=== PATIENT | female | born 1960 | race African-American/Black ===

== ENCOUNTER 2020-06-02 21:27 | Emergency (ER) | payer MEDICARE ==
[~2020-06-02] VITALS: Ht 162.6 cm; Wt 118.2 kg
[2020-06-02 21:29] VITALS: BP 131/82; Ht 162.6 cm; Wt 118.2 kg
[2020-06-02] MEDS ORDERED: KEFLEX500 MG PO (22:29)
[2020-06-03] MEDS ORDERED: NEURONTIN 300300 MG PO (12:33)
[2020-06-03] MEDS ORDERED: PRAVACHOL40 MG PO (12:33)
[2020-06-03] MEDS ORDERED: K-DUR20 MEQ PO (12:34)
[2020-06-03] MEDS ORDERED: PEPCID AC20 MG PO (12:34)
[2020-06-03] MEDS ORDERED: BETAPACE 120 M120 MG PO (12:35)
[2020-06-03] MEDS ORDERED: PLAVIX75 MG PO (12:35)
[2020-06-03] MEDS ORDERED: LEXAPRO20 MG PO (12:35)
[2020-06-03] MEDS ORDERED: BUMEX2 MG PO (12:36)
[2020-06-03] MEDS ORDERED: ELIQUIS5 MG PO (12:36)
[2020-06-04 02:47] VITALS: Ht 162.6 cm; Wt 118.2 kg
[2020-06-04] MEDS ORDERED: HYDROCODON-ACE1 EAC7 PO (16:52)
== END 2020-06-03 00:55 | disposition home or self-care (01) ==
LOC: D.ER 21:27 → EDBD 21:27 → D.ER 06-03 00:55
DX: S91.114A Laceration without foreign body of right lesser toe(s) without damage to nail, initial encounter (principal); X58.XXXA Exposure to other specified factors, initial encounter

== ENCOUNTER 2020-06-03 12:16 | Inpatient (IN) | payer MEDICARE, MEDICAID ==
[~2020-06-03] VITALS: Ht 162.6 cm; Wt 101.8 kg
[~2020-06-03 12:16] MED LIST: KEFLEX500 MG PO
[2020-06-03] MEDS ORDERED: NEURONTIN 300300 MG PO (12:33)
[2020-06-03] MEDS ORDERED: PRAVACHOL40 MG PO (12:33)
[2020-06-03] MEDS ORDERED: K-DUR20 MEQ PO (12:34)
[2020-06-03] MEDS ORDERED: PEPCID AC20 MG PO (12:34)
[2020-06-03] MEDS ORDERED: BETAPACE 120 M120 MG PO (12:35)
[2020-06-03] MEDS ORDERED: LEXAPRO20 MG PO (12:35)
[2020-06-03] MEDS ORDERED: PLAVIX75 MG PO (12:35)
[2020-06-03] MEDS ORDERED: ELIQUIS5 MG PO (12:36)
[2020-06-03] MEDS ORDERED: BUMEX2 MG PO (12:36)
[2020-06-03 13:41] LABS: BASOPHILS 0.2 % (0-2); HEMATOCRIT 38.6 % (36.0-48.0); HEMOGLOBIN 12.2 g/dL (12-16); IMMATURE GRANULOCYTES 0.2 % (0-5); LYMPHOCYTES 42.4 % (15-50); MCH 27.7 pg (26.0-34.0); MCHC 31.6 g/dL (31.0-37.0); MCV 87.5 fL (80.0-100.0); MEAN PLATELET VOLUME 11.8 fL (7.4-10.4); MONOCYTES 5.5 % (2-11); NEUTROPHILS 50.7 % (40-80); PLATELET COUNT 241 10x3/uL (130-400); RBC 4.41 10x6/uL (4.00-5.40); RDW 14.7 % (11.5-14.5); WBC 4.9 10x3/uL (4.8-10.8)
[2020-06-03 13:47] LABS: APTT 33.9 SECONDS (22.8-39.4); INR 1.28 (0.85-1.17); PROTIME 15.9 SECONDS (11.6-15.0)
[2020-06-03 13:50] LABS: ANION GAP 12.6 mmol/L (8-16); CALCIUM 8.7 mg/dL (8.5-10.1); CARBON DIOXIDE 28.9 mmol/L (21.0-32.0); CREATININE - SERUM 0.9 mg/dL (0.6-1.3); POTASSIUM - SERUM 3.5 mmol/L (3.5-5.1)
[2020-06-03 13:56] LABS: ALBUMIN 3.4 g/dL (3.4-5.0); BILIRUBIN - TOTAL 0.4 mg/dL (0.2-1.3); PROTEIN - SERUM 7.3 g/dL (6.4-8.2)
--- NOTE | 2020-06-03 15:48 | NUR ---
UNABLE TO GAIN IV ACCESS AFTER 4 ATTEMPTS, 2 OF WHICH WERE THE VASCULAR ACCESS NURSE LINE LEADER. DR QUIÑONEZ NOTIFIED AT THIS TIME, NO MEDS HAVE BEEN GIVEN AT THIS TIME DUE TO DIFFICULTY.
[2020-06-03 18:27] VITALS: BP 105/61
--- NOTE | 2020-06-03 19:45 | NUR ---
PT LYING IN BED RESTING WITHOUT DISTRESS, AOX4. PT IS APHASIC, HARD TO UNDERSTAND. UPDATED SON AT BEDSIDE. IV LEFT HAND. RIGHT FOOT DRESSING CDI, ELEVATED ON PILLOW. DENIES NEEDS. CL IN REACH, WILL CTM
--- NOTE | 2020-06-03 21:30 | NUR ---
PT REQUESTING SOMETHING TO EAT. PROVIDED SANDWICH TRAY AND SPRITE. SET UP FOR PT AND WAS THEN ABLE TO EAT WITH LEFT ARM. UNABLE TO MOVE RIGHT SIDE
[2020-06-04] VITALS: BP 121/59
[2020-06-04 02:47] VITALS: Ht 162.6 cm; Wt 101.8 kg
[2020-06-04 04:00] VITALS: BP 90/52
[2020-06-04 07:16] LABS: BASOPHILS 0.1 % (0-2); EOSINOPHILS 0.4 % (0-7); HEMATOCRIT 27.9 % (36.0-48.0); HEMOGLOBIN 8.7 g/dL (12-16); IMMATURE GRANULOCYTES 0.1 % (0-5); LYMPHOCYTES 43.4 % (15-50); MCH 27.5 pg (26.0-34.0); MCHC 31.2 g/dL (31.0-37.0); MCV 88.3 fL (80.0-100.0); MEAN PLATELET VOLUME 11.8 fL (7.4-10.4); RBC 3.16 10x6/uL (4.00-5.40); RDW 14.9 % (11.5-14.5); WBC 7.5 10x3/uL (4.8-10.8)
[2020-06-04 07:17] LABS: PLATELET COUNT 191 10x3/uL (130-400)
[2020-06-04 07:28] LABS: ANION GAP 11.5 mmol/L (8-16); BILIRUBIN - TOTAL 0.21 mg/dL (0.2-1.3); CALCIUM 8.1 mg/dL (8.5-10.1); CARBON DIOXIDE 24.8 mmol/L (21.0-32.0); POTASSIUM - SERUM 3.3 mmol/L (3.5-5.1); PROTEIN - SERUM 5.9 g/dL (6.4-8.2)
[2020-06-04 07:29] LABS: ALBUMIN 2.4 g/dL (3.4-5.0)
[2020-06-04 09:51] VITALS: BP 105/68
[2020-06-04 14:57] VITALS: BP 91/60
[2020-06-04] MEDS ORDERED: HYDROCODON-ACE1 EAC7 PO (16:52)
--- NOTE | 2020-06-04 16:54 | MORECARE ---
CASE MANAGEMENT DISCHARGE SUMMARY PATIENT: FREDERICK MOCK UNIT: [id number] ADM DATE: 06/03/20 AGE: 60 : 58 SEX: F ROOM/BED: D.2216 AUTHOR: JUANJOSE LOOMIS PHYSICIAN: REFERRING PHYSICIAN: TRINIDAD BLACK MD DATE OF SERVICE: 06/04/20 Discharge Plan Patient Name: FREDERICK MOCK Facility: [facility]:[place] : 1960 Planned Disposition: Home Anticipated Discharge Date: Discharge Date: Expected LOS: Initial Reviewer: [email or web address] Initial Review Date: 06/03/2020 Generated: 06/04/20 5:53 pm Patient Name: FREDERICK MOCK Page [id number] at 1654 All edits/amendments must be made on the electronic document DICTATION DATE: 06/04/201652 BRANCH RENTAL MANAGER: BETSY 06/04/201652 RPT#: [id number] DC DATE: STATUS: ADM IN [facility] [address] [place] [address] END OF REPORT
--- NOTE | 2020-06-04 17:01 | MORECARE ---
CASE MANAGEMENT DISCHARGE SUMMARY PATIENT: RFEDERICK MOCK UNIT: [id number] ADM DATE: 06/03/20 AGE: 60 : 58 SEX: F ROOM/BED: D.2216 AUTHOR: EBONIE,DOC PHYSICIAN: REFERRING PHYSICIAN: TRINIDAD BLACK MD DATE OF SERVICE: 06/04/20 Discharge Plan Patient Name: FREDERICK MOCK Facility: [facility]:[place] : 1960 Planned Disposition: Home Anticipated Discharge Date: Discharge Date: Expected LOS: Initial Reviewer: [email or web address] Initial Review Date: 06/03/2020 Generated: 06/04/20 6:00 pm DCP- Discharge Planning Updated by [email or web address]: Homa Gorman on 06/04/20 3:[address] Patient Name: FREDERICK MOCK Admission Status: ER Accout number: [id number] Admission Date: 06-03-2020 : 1960 Admission Diagnosis: Attending: KRISTEN Current LOS: 1 Anticipated DC Date: Planned Disposition: Home Primary Insurance: MEDICARE A & B Discharge Planning Comments: CM met with patient to complete initial dc planning assessment. I had a hard time communicating with the patient, she told me to call her son. I spoke with Praful, her son for the assessment. CM educated patient on the CM role and verbal consent given by patient to complete assessment. Patient lives at home with her son. At discharge patient plans to return home and feels this is a safe discharge. CM discussed availability of home health, rehab services, and medical equipment. Praful stated that she has all the DME that she needs. She also has [place] choices but he couldn't remember the name of the company, but she gets 35 hours a week. Patient & son denied known discharge needs at this time. CM will continue to follow and will assist as needed with dc plans/needs. Litigation Paralegal: Homa Gorman DCPIA - Discharge Planning Initial Assessment Updated by [email or web address]: Homa Gorman on 06/04/20 4:54 pm * Is the patient Alert and Oriented? Yes * How many steps to enter\exit or inside your home? RAMP * PCP PRATHER * Pharmacy [facility] * Preadmission Environment Home with Family * ADLs Total Dependent * Other Equipment SON SAYS SHE HAS ALL DME SHE NEEDS * List name and contact numbers for known caregivers / representatives who currently or will assist patient after discharge: [place] [phone] * Verbal permission to speak to the caregivers and representatives has been obtained from the patient. Yes * Community resources currently utilized [employer] * Please name any agencies selected above. UNSURE, BUT HAS 35 HOURS A DAY * Additional services required to return to the preadmission environment? No * Can the patient safely return to the preadmission environment? Yes Last DP export: 06/04/20 3:54 p Patient Name: FREDERICK MOCK Page [id number] at 1701 All edits/amendments must be made on the electronic document DICTATION DATE: 06/04/201699 COLLARETTE SEPARATOR: BETSY 06/04/201699 RPT#: [id number] DC DATE: STATUS: ADM IN [facility] [address] [place] [address] END OF REPORT
--- NOTE | 2020-06-04 18:44 | NUR ---
IV THERAPY REMOVED FROM LEFT HAND THUMB IV WITH TIP INTACT. DISCHARGE INSTRUCTIONS GIVEN. PATIENT AND SON VERBALIZED UNDERSTANDING. SON PARRISH HAD TO GO HOME TO GET CLOTHS BECAUSE HE FOR GOT THEM.
--- NOTE | 2020-06-05 09:44 | MORECARE ---
CASE MANAGEMENT DISCHARGE SUMMARY PATIENT: FREDERICK MCOK UNIT: [id number] ADM DATE: 06/03/20 AGE: 60 : 58 SEX: F ROOM/BED: D.2216 AUTHOR: EBONIEDOC PHYSICIAN: REFERRING PHYSICIAN: TRINIDAD BLACK MD DATE OF SERVICE: 06/05/20 Discharge Plan Patient Name: FREDERICK MOCK Facility: [facility]:[place] : 1960 Planned Disposition: Home Anticipated Discharge Date: Discharge Date: 06/04/2020 Expected LOS: Initial Reviewer: [email or web address] Initial Review Date: 06/03/2020 Generated: 06/05/20 10:44 am DCP- Discharge Planning Updated by [email or web address]: Homa Gorman on 06/04/20 3:[address] Patient Name: FREDERICK MOCK Admission Status: ER Accout number: [id number] Admission Date: 06-03-2020 : 1960 Admission Diagnosis: Attending: KRISTEN Current LOS: 1 Anticipated DC Date: Planned Disposition: Home Primary Insurance: MEDICARE A & B Discharge Planning Comments: CM met with patient to complete initial dc planning assessment. I had a hard time communicating with the patient, she told me to call her son. I spoke with Parrish, her son for the assessment. CM educated patient on the CM role and verbal consent given by patient to complete assessment. Patient lives at home with her son. At discharge patient plans to return home and feels this is a safe discharge. CM discussed availability of home health, rehab services, and medical equipment. Parrish stated that she has all the DME that she needs. She also has [place] choices but he couldn't remember the name of the company, but she gets 35 hours a week. Patient & son denied known discharge needs at this time. CM will continue to follow and will assist as needed with dc plans/needs. Service Order Dispatcher Chief: oHma Gorman DCPIA - Discharge Planning Initial Assessment Updated by [email or web address]: Homa Gorman on 06/04/20 4:54 pm * Is the patient Alert and Oriented? Yes * How many steps to enter\exit or inside your home? RAMP * PCP PRATHER * Pharmacy [facility] * Preadmission Environment Home with Family * ADLs Total Dependent * Other Equipment SON SAYS SHE HAS ALL DME SHE NEEDS * List name and contact numbers for known caregivers / representatives who currently or will assist patient after discharge: PARRISH [phone] * Verbal permission to speak to the caregivers and representatives has been obtained from the patient. Yes * Community resources currently utilized [employer] * Please name any agencies selected above. UNSURE, BUT HAS 35 HOURS A DAY * Additional services required to return to the preadmission environment? No * Can the patient safely return to the preadmission environment? Yes Last DP export: 06/04/20 4:01 p Patient Name: FREDERICK MOCK Page 38691 at 0944 All edits/amendments must be made on the electronic document DICTATION DATE: 06/05/20943 MESSAGE BROKER DEVELOPER: BETSY 06/05/20943 RPT#: [id number] DC DATE:06/04/20 STATUS: DIS IN [facility] [address] [place] [address] END OF REPORT
--- NOTE | 2020-06-06 23:56 | OP ---
PATIENT NAME: FREDERICK MOCK MEDICAL RECORD: [id number] :58 LOCATION:D.MS [id number] ADMISSION DATE:06/03/20 SURGEON: DAYNE QUIÑONEZ MD DATE OF OPERATION: 06/03/2020 PREOPERATIVE DIAGNOSES: 1. Ongoing hemorrhage from a right fifth toe laceration, the patient is on Eliquis. 2. Ongoing blood loss. POSTOPERATIVE DIAGNOSES: 1. Ongoing hemorrhage from a right fifth toe laceration, the patient is on Eliquis. 2. Ongoing blood loss. 3. Some nonviable tissue within the space between the base of the fourth and fifth toes on the right. PROCEDURE: 1. Control of hemorrhage from right fifth toe laceration. 2. Sharp excisional debridement of right fifth toe laceration with closure. SURGEON: Dayne Quiñonez MD DEGREASER OPERATOR: None. BLOOD LOSS: 25 cc. ANESTHESIA: Local with IV sedation. OPERATIVE COURSE: The patient presented to the Emergency Room with hemorrhage and it appears that this has been going on for about 18 hours before presentation to the Emergency Room this afternoon. The patient had been seen in the Emergency Room. The patient had some laceration on the plantar surface at the base of the right fifth toe. The laceration is about 3 fifths of the circumference at the base of the right fifth toe. It does not involve another toe. There does not appear to be any foreign material within the laceration. I do not see that it was closed. It continues to bleed. The bleeding appears to be arterial. The patient has been on Eliquis. She has altered sensation in the right foot. Tissues that were sharply debrided included skin and subcutaneous tissue. The area debrided was 6 mm x 2 mm included skin and subcutaneous tissue only. I debrided sharply back to viable bleeding tissue. The patient was conveyed to the operating room emergently on 06/03/2020. The thing that made this trip to the operating room was an emergency was due to the length of time the patient had had uncontroled arterial bleeding from this site. The IV sedation was induced by the anesthesia staff. The right foot was sterilely prepped and draped. Utilizing the magnification, I examined the laceration. It was irrigated with normal saline. There was one bleeding area that appeared to be coming from a digital artery, so the patient very likely may have a digital nerve injury. I noted no flexor tendon injury as I did not even see a flexor tendon. As I told the patient and her son that if I were to find a tendon injury, I would not try to repair it. The patient is confined to a OPERATIVE REPORT [id number] FREDERICK MOCK wheelchair. She has no motion in the right foot; therefore, repairing a flexor tendon would be of no benefit to the patient. They understood this and agreed. Anyhow, I identified one bleeding arterial structure. With manipulation of the toe it was obvious that the patient was having some discomfort, so I performed a digital block utilizing 1% lidocaine without epinephrine. I then irrigated the laceration again with hydrogen peroxide. The length of laceration was 1.9 cm. The bleeding area was made hemostatic with the bipolar cautery. I irrigated some more. The debridement was carried out with scissors. A small amount of undermining was necessary to close the laceration. The lacerations were closed with multiple interrupted horizontal mattress 2-0 Vicryls. Dermabond was then applied. The site was quite hemostatic at the end of the operation. The patient was then conveyed back to her room. She is going to be observed overnight to ensure that there is no bleeding. She may require blood products due to the amount of bleeding that has occurred. TRANSINT:[id number] Voice Confirmation ID: [id number] DOCUMENT ID: [id number] DAYNE QUIÑONEZ MD at 2356 CC: TRINIDAD BLACK MD [id number] DICTATION DATE: 06/03/202215 BLOOD DONOR UNIT ASSISTANT: 06/04/20 0400 DIS IN 06/04/20 [id number] [place] [address]
== END 2020-06-04 19:45 | disposition home or self-care (01) | DRG 580 ==
LOC: D.ER 12:16 → D.MS 14:45
PROVIDERS: Family Medicine; Surgery; ADMIT Family Medicine; ATTEND Family Medicine
PROC: 0Y3 Anatomical Regions, Lower Extremities, Control (ICD-10-PCS; 2020-06-03)
PROC: 0JQQ3ZZ Repair Right Foot Subcutaneous Tissue and Fascia, Percutaneous Approach (ICD-10-PCS; principal; 2020-06-03 14:00)
DX: S91.114A Laceration without foreign body of right lesser toe(s) without damage to nail, initial encounter (principal); I69.351 Hemiplegia and hemiparesis following cerebral infarction affecting right dominant side; Z79.01 Long term (current) use of anticoagulants; I25.10 Atherosclerotic heart disease of native coronary artery without angina pectoris; I48.91 Unspecified atrial fibrillation; E78.5 Hyperlipidemia, unspecified; K21.9 Gastro-esophageal reflux disease without esophagitis; F32.9 Major depressive disorder, single episode, unspecified

== ENCOUNTER 2020-07-30 16:52 | Emergency (ER) | payer MEDICARE, MEDICAID ==
[~2020-07-30] VITALS: Ht 162.6 cm; Wt 102.3 kg
[~2020-07-30 16:52] MED LIST changes: +BETAPACE 120 M120 MG PO; +BUMEX2 MG PO; +ELIQUIS5 MG PO; +HYDROCODON-ACE1 EAC7 PO; +K-DUR20 MEQ PO; +LEXAPRO20 MG PO; +NEURONTIN 300300 MG PO; +PEPCID AC20 MG PO; +PLAVIX75 MG PO; +PRAVACHOL40 MG PO
[2020-07-30 16:59] VITALS: BP 120/76; Ht 162.6 cm; Wt 102.3 kg
== END 2020-07-30 20:35 | disposition home or self-care (01) ==
LOC: D.ER 16:52
DX: S91.311A Laceration without foreign body, right foot, initial encounter (principal); S99.921A Unspecified injury of right foot, initial encounter; X58.XXXA Exposure to other specified factors, initial encounter; E11.9 Type 2 diabetes mellitus without complications; I10 Essential (primary) hypertension; Z95.5 Presence of coronary angioplasty implant and graft; I48.91 Unspecified atrial fibrillation

== ENCOUNTER 2021-05-20 12:42 | Emergency (ER) | payer MEDICARE ==
[~2021-05-20] VITALS: Ht 162.6 cm; Wt 81.8 kg
[2021-05-20 12:53] VITALS: BP 126/75; Ht 162.6 cm; Wt 81.8 kg
== END 2021-05-20 13:45 | disposition home or self-care (01) ==
LOC: D.ER 12:42
DX: R04.0 Epistaxis (principal); Z79.01 Long term (current) use of anticoagulants; E11.9 Type 2 diabetes mellitus without complications; I10 Essential (primary) hypertension; Z86.73 Personal history of transient ischemic attack (TIA), and cerebral infarction without residual deficits